=== PATIENT | female | born 1940 ===

== ENCOUNTER 2017-07-22 15:05 | Emergency (ER) | payer MEDICARE, MEDICAID ==
[2017-07-22 15:05] VITALS: BMI 25.4
[2017-07-22 15:40] VITALS: RESP 18
[2017-07-22 16:30] LABS: BASO % 0.7 % (0.0-2.0); EOS # 0.3 K/uL (0.0-0.7); EOS % 4.1 % (0.0-4.0); HEMATOCRIT 40.2 % (34.0-47.0); LYMPH # 1.7 K/uL (1.0-4.3); LYMPH % 28.1 % (20.0-40.0); MEAN CORPUSCULAR HEMOGLOBIN 30.5 pg (27.0-31.0); MEAN CORPUSCULAR HGB CONC 33.9 g/dL (33.0-37.0); MEAN PLATELET VOLUME 8.6 fL (7.2-11.7); MONO # 0.5 K/uL (0.0-0.8); RED CELL DISTRIBUTION WIDTH 14.1 % (11.5-14.5); WHITE BLOOD COUNT 6.2 K/uL (4.8-10.8)
[2017-07-22 16:36] LABS: MEAN CELL VOLUME 89.9 fL (81.0-99.0)
[2017-07-22 16:41] LABS: CHLORIDE 98 mmol/L (98-107); SODIUM 136 mmol/L (132-148)
[2017-07-22 16:43] LABS: BILIRUBIN,TOTAL 1.1 mg/dL (0.2-1.3); CARBON DIOXIDE 26 mmol/L (22-30); GFR AFRICAN-AMERICAN > 60
[2017-07-22 16:44] LABS: ALB/GLOB RATIO 1.2 (1.0-2.1); ALKALINE PHOSPHATASE 115 U/L (38-126); ALT/SGPT 24 U/L (9-52); AST/SGOT 51 U/L (14-36); BLOOD UREA NITROGEN 18 mg/dL (7-17); CALCIUM 9.5 mg/dl (8.6-10.4); GLUCOSE,RANDOM 103 mg/dL (65-105); POTASSIUM 4.5 mmol/L (3.6-5.2); TOTAL PROTEIN 8.6 g/dL (6.3-8.3)
--- NOTE | 2017-07-22 17:01 | RAD ---
PROCEDURE: CHEST RADIOGRAPH, 1 VIEW HISTORY: chest pain COMPARISON: None available. FINDINGS: LUNGS: Clear. PLEURA: No pneumothorax or pleural fluid seen. CARDIOVASCULAR: Heart appears mildly enlarged. Aorta is ectatic and uncoiled with calcification of the aortic knob. The. Questionable calcified left hilar lymph node. OSSEOUS STRUCTURES: No significant abnormalities. VISUALIZED UPPER ABDOMEN: Normal. OTHER FINDINGS: None. IMPRESSION: No acute infiltrates. . Cardiomegaly.
[2017-07-22 17:43] VITALS: BP 158/72; PULSE 74; TEMP 97.9; O2SAT 99
--- NOTE | 2017-07-22 20:48 | C.PDOC ---
History Of Present Illness 76 year old female presents to the ED for evaluation of intermittent chest pain for two months. Patient was referred to the ED by clinic. She was last seen by isotope technologist last month. [place] [facility] [place] a two day stay. Results are unknown by patient. Patient notes a dry cough and denies fever, shortness of breath, weakness, numbness, or abdominal pain. Chief Complaint (Nursing): Chest Pain History Per: Patient History/Exam Limitations: no limitations Onset/Duration Of Symptoms: Intermittent Episodes (2 months ) Current Symptoms Are (Timing): Still Present Quality: "Pain" Associated Symptoms: denies: Nausea, Dyspnea, Diaphoresis Modifying Factors: None Exacerbating Factors: None Alleviating Factors: None Recent travel outside of the [place]: No Additional History Per: Prior Records (clinic ) Past Medical History Reviewed: Historical Data, Nursing Documentation, Vital Signs Vital Signs: Last Vital Signs Temp 97.9 F 07/22/17 17:42 Pulse 74 07/22/17 17:42 Resp 18 07/22/17 17:42 BP 158/72 H 07/22/17 17:42 Pulse Ox 99 07/22/17 20:51 - Medical History PMH: HTN Family History: States: Unknown Family Hx - Social History Hx Alcohol Use: No Hx Substance Use: No - Immunization History Hx Influenza Vaccination: No Review Of Systems Constitutional: Negative for: Fever Cardiovascular: Positive for: Chest Pain. Negative for: Palpitations Respiratory: Negative for: Cough, Shortness of Breath Gastrointestinal: Negative for: Nausea, Vomiting, Abdominal Pain, Diarrhea Neurological: Negative for: Weakness, Numbness Physical Exam - Physical Exam Appears: Non-toxic, No Acute Distress Skin: Warm, Dry Head: Atraumatic, Normacephalic Eye(s): bilateral: Normal Inspection, PERRL, EOMI Oral Mucosa: Moist Neck: Supple Chest: Symmetrical, No Deformity Cardiovascular: Rhythm Regular, No Murmur Respiratory: No Rales, No Rhonchi, No Wheezing, Other (clear to auscultation bilaterally ) Gastrointestinal/Abdominal: Soft, No Tenderness, No Distention, No Guarding, No Rebound Extremity: Normal ROM, No Tenderness, No Pedal Edema, No Calf Tenderness, Capillary Refill (good capillary refill, less than two seconds ), No Deformity, No Swelling Neurological/Psych: Oriented x3 ED Course And Treatment - Laboratory Results Result Diagrams: 07/22/17 16:26 07/22/17 16:26 ECG: Interpreted By Me, Viewed By Me ECG Rhythm: Sinus Rhythm Interpretation Of ECG: Normal axis and rhythm. LVA. Rate From EC O2 Sat by Pulse Oximetry: 99 (RA) Progress Note: Case discussed with Dr. Scott and agrees with discharge. Patient instructed to follow up in two days. Disposition - Disposition Referrals: Eder Scott MD [Staff Provider] - Disposition: HOME/ ROUTINE Disposition Time: 17:30 Condition: GOOD Additional Instructions: Thank you for letting us take care of you today. Your provider was Dr. Bonilla. You were treated for non-cardiac chest pain. The emergency medical care you received today was directed at your acute symptoms. If you were prescribed any medication, please fill it and take as directed. It may take several days for your symptoms to resolve. Return to the Emergency Department if your symptoms worsen, do not improve, or if you have any other problems. Please contact your doctor or call one of the physicians/clinics you have been referred to that are listed on the Patient Visit Information form that is included in your discharge packet. Bring any paperwork you were given at discharge with you along with any medications you are taking to your follow up visit. Our treatment cannot replace ongoing medical care by a primary care provider (PCP) outside of the emergency department. Thank you for allowing the [facility] team to be part of your care today. Follow up with Dr. Scott (your heart doctor) in 2-3 days for re-evaluation and further management. C?m on b?n d cho php chng ti torsten sc b?n ngy nay. Nh cung c?p c?a b? n l Ti?n si [place]. B?n d du?c di?u tr? cho sanjana ng?c khng rell. Torsten sc y t? kh?n c?p m b?n nh?n du?c ngy nay d d?n d?n cc tri?u ch?ng c?p tnh c? a b?n. N?u b?n d du?c k don b?t k? lo?i bella?c no, vui lng di?n n v l?y angel hu?ng d?n. C th? m?t vi ngy d? tri?u ch?ng c?a b?n du?c gi?i abhi?t. Tr? l?i Phng C?p C?u n?u cc tri?u ch?ng x?u di, khng c?i thi?n, ho?c n?u b?n c b ?t k? v?n d? g khc. Robyn vui lng jaxon h? v?i bc si c?a b?n ho?c g?i cho m?t jeffery nh?ng bc si / ph ng khm m b?n d du?c gi?i thi?u du?c li?t k jeffery m?u Thng tin v? Truy c?p B?nh nhn c jeffery gi paulino?t vi?n c?a b?n. Nam angel b?t k? gi?y t? no m b?n d du?c ernesto ra khi paulino?t vi?n v?i b?n cng v?i b?t k? lo?i bella?c no b?n hills d ng d? angel di gerhard khm. Vi?c di?u tr? c?a chng ti khng th? thay th? s? torsten sc y t? [place] du?c th?c hi?n b?i co s? torsten sc chnh (PCP) bn ngoi ph ng c?p c?u. C?m on b?n d cho php d?i [facility] tr? thnh m?t ph?n c?a s? torsten sc c ?a b?n hm nay. Angel di v?i Ti?n si [place] (bc si rell m?ch c?a b?n) jeffery 2-3 ngy d? dnh gi l?i v qu?n l thm. Instructions: Noncardiac Chest Pain (ED) Forms: [employer] (Icelandic) - Clinical Impression Clinical Impression: Pleuritic pain - Scribe Statement The provider has reviewed the documentation as recorded by the Scribe Dai Hu All medical record entries made by the Scribe were at my direction and personally dictated by me. I have reviewed the chart and agree that the record accurately reflects my personal performance of the history, physical exam, medical decision making, and the department course for this patient. I have also personally directed, reviewed, and agree with the discharge instructions and disposition.
== END 2017-07-22 17:52 | disposition home or self-care (01) ==
LOC: C.ER 15:05
DX: R07.81 Pleurodynia (principal)